=== PATIENT | male | born 1965 | race Caucasian/White ===

== ENCOUNTER 2019-09-14 16:03 | Emergency (ER) | payer BC, OTHER ==
[~2019-09-14] VITALS: Ht 205.7 cm; Wt 129.3 kg
[2019-09-14] MEDS ORDERED: BACTRIM DS TAB1 EACH PO (16:49)
[2019-09-14 16:59] VITALS: BP 110/74
== END 2019-09-14 17:02 | disposition home or self-care (01) ==
LOC: ER 16:03
DX: L08.9 Local infection of the skin and subcutaneous tissue, unspecified (principal); B95.62 Methicillin resistant Staphylococcus aureus infection as the cause of diseases classified elsewhere; F17.210 Nicotine dependence, cigarettes, uncomplicated